=== PATIENT | male | born 1955 | race Caucasian/White ===

== ENCOUNTER → 2017-11-29 11:20 | Outpatient (CLI) | payer MEDICARE, SELFPAY ==
--- NOTE | 2017-11-29 11:27 | FL_ITS ---
FL barium swallow modified: 11/29/2017 11:27 AM CLINICAL HISTORY: Dysphagia ORDERING PHYSICIAN: Garry Sarmiento MD PATIENT AGE: 62 years COMPARISON: TECHNIQUE: Patient administered varying consistencies of barium contrast, while viewed in lateral position under real-time fluoroscopy with cine recording. FLUOROSCOPY TIME: 3 minutes and 47 seconds The study was performed in conjunction with speech pathologist. Please see that report & recommendations. FINDINGS: Patient was given varying consistencies of barium. This consisted of thin liquid with spoon and cup, nectar liquid with spoon and cup, honey liquid with spoon and cup, thick liquid. There was some delay in swallowing initiation with mild residue noted. No obvious aspiration. There was penetration with thin liquid with cough IMPRESSION: There was some delay in swallowing initiation with mild residue noted. No obvious aspiration. There was penetration with thin liquid with cough Please see speech pathologist report and recommendations.
--- NOTE | 2017-11-29 12:27 | HMH.SLMBS2 ---
Speech & Language Evaluation Speech/Language Mod Barium Swallow Start: 11/29/17 12:13 Freq: once Status: Complete Protocol: Document 11/29/17 12:13 SARTHAKJASMIN (Rec: 11/29/17 12:26 JIMENA [id number]) MBS Recommendations Diet Dietary Recommendations Pureed Honey Liquids Treatment/Strategies Strategy/Precaution Recommend Sitting Upright (90 deg) Liquids from Cup Mod Barium Swallow Impressions Summary and Impressions Oral Phase Impression No Impairment (WFL) Oral Phase Summary Oral phase was within functional limits, however, honey thick liquids from open cup were messy due to impressive mustache. Pharyngeal Phase Impression Mild Impairment Pharyngeal Phase Summary Residue in velecula with puree was difficult to clear. Speech/Language MBS Assessment/Goals/Plan Assessment Date of Evaluation: 11/29/17 Evaluation Type Initial Certification Assessment/Problems senior living facility ST provider concerned with silent aspiration duirng trials with feeding. Does Patient Qualify for Service Yes Qualify/Failure Comment To monitor and progress diet. Plan Pt/Guardian verbally ack understanding No: Caregiver informed of dx/prognosis/goals Pt/Guardian verbally ack understanding No: Cargiver informed of/consent to tx prog G -code Required Yes G-CODES ST Current Status [id number] ST Current Status Modifier CL-At least 60% but less than 80% impaired, limited or restricted ST Goal Status [id number] ST Goal Status Modifier CL-At least 60% but less than 80% impaired, limited or restricted Mod Barium Swallow-Lat View Textures Lateral View Food Presentation Thin Liquid via Spoon Thin Liquid via Cup Jovista Liquid via Spoon Jovista Liquid via Cup Honey Liquid via Spoon Honey Liquid via Cup Pureed Food- Thick Oral Phase Labial Closure No Impairment (WFL) Bolus Formation Pooling L/R No Impairment (WFL) Bolus Formation under Tongue No Impairment (WFL) Bolus Formation Scattered Loss No Impairment (WFL) Mastication Rotary Chew No Impairment (WFL) Mastication Munching No Impairment (WFL) Mastication Lateralization No Impairment (WFL) A/P Lingua
== END ==
PROVIDERS: PCP Internal Medicine Adolescent Medicine; Visit Provider Internal Medicine Adolescent Medicine
DX: R13.10 Dysphagia, unspecified (principal)
CPT/HCPCS: 70371; 92611